=== PATIENT | male | born 1990 | race Caucasian/White ===

== ENCOUNTER 2019-07-12 13:33 | Emergency (ER) | payer BC, SELFPAY ==
[2019-07-12 13:34] VITALS: BP 135/82; PULSE 66; RESP 20; TEMP 36.3; O2SAT 98; BMI 23.7
[2019-07-12 13:53] VITALS: RESP 17
--- NOTE | 2019-07-12 14:00 | PC.NURSE ---
FLUSHED EYES WITH EYE WASH STATION PT LILLIE WELL
--- NOTE | 2019-07-12 14:18 | W.ED.EYEPROB ---
HPI - Eye Problem General: Chief complaint: Eye Problems Stated complaint: chem in eye Time Seen by Provider: 07/12/19 13:41 Review of Systems General: Reports: 10 or more systems reviewed and unremarkable except in HPI and below Eyes: Reports: blurry vision PFSH ED PFSH: Social History Smoking and tobacco status: never smoked Physical Exam Const: COMMON NORMALS: no apparent distress, oriented x3, no limitations and alert GENERAL APPEARANCE: cooperative and comfortable ORIENTATION/CONSCIOUSNESS: Yes awake, Yes oriented to person, Yes oriented to place and Yes oriented to time HENMT: COMMON NORMALS: normocephalic, head/scalp atraumatic, external ears normal, EAC's normal, TM's normal bilaterally and external nose normal HEAD & SCALP: normal to inspection, normocephalic and atraumatic FACE & SINUS: normal facial exam, sinuses nontender and face symmetric NOSE: external nose normal, nares normal and no nasal discharge EXTERNAL EAR: Yes external ears normal EXTERNAL AUDITORY CANAL: EAC's normal TYMPANIC MEMBRANE: TM's normal bilaterally MOUTH: oral and palatal mucosa normal, lip normal and tongue normal THROAT: posterior oropharynx normal, tonsils normal and uvula midline Eye: COMMON NORMALS: PERRL and EOMs intact bilaterally GENERAL EYE: normal appearance of both eyes and normal light reflex EYELID: eyelids normal CONJUNCTIVA: Yes conjunctiva abnormal positive right other (redness) SCLERA: sclerae normal CORNEA: Yes corneas normal and fluorescein used PUPIL: Yes PERRL EOM: Yes EOM abnormal DIRECT OPHTHALMOSCOPY: Yes normal light reflex Neck/C-Spine: COMMON NORMALS: full ROM, no lymphadenopathy, supple, no meningeal signs, no JVD and thyroid normal GENERAL: Yes normal visual inspection THYROID: thyroid normal CERVICAL SPINE: Yes cervical ROM normal and Yes normal cervical lordosis Lymph: LYMPHATIC: no lymphadenopathy noted Chest: COMMONS NORMALS: inspection of chest normal and palpation of chest normal Resp: COMMON NORMALS: normal respiratory effort, no retractions and clear to auscultation bilaterally AUSCULTATION: clear to auscultation bilaterally Cardio: COMMON NORMALS: no JVD, regular rate, regular rhythm, S1 normal heart sound, S2 normal heart sound, no gallops, no clicks, no murmurs, no rub and peripheral pulses 2+ throughout RATE: regular rate RHYTHM: regular rhythm HEART SOUNDS: S1 normal and S2 normal PERIPHERAL PULSES: pulses 2+ throughout GI: COMMON NORMALS: normal to inspection, nondistended, normoactive bowel sounds, soft to palpation, non-tender and no masses PALPATION: Yes soft : COMMON NORMALS: Yes no CVA tenderness BLADDER/KIDNEY EXAM: Yes no CVA tenderness Back/Pelvis: COMMON NORMALS: no CVA tenderness, thoracic and lumbar spine normal to inspection, no thoracic nor lumbar tenderness and thoraco-lumbar ROM normal Extremity: COMMON NORMALS: normal to inspection, full ROM, normal capillary refill, no joint enlargement, no clubbing, cyanosis or edema, no calf tenderness and no pedal edema GENERAL: Yes normal exam except as noted Neuro: COMMON NORMALS: oriented x3, moves all extremities, no focal motor deficits, no sensory deficits noted and gait normal SENSORIUM/ORIENTATION: Yes alert, Yes oriented to person, Yes oriented to place and Yes oriented to time MENINGEAL SIGNS: Yes no meningeal signs Psych: COMMON NORMALS: mental status grossly normal, thought process normal, cooperative, affect normal, speech normal and activity/motor behavior normal SPEECH: Yes normal speech THOUGHT PROCESS: normal thought process Skin: COMMON NORMALS: no rashes or lesions noted, no wounds and skin turgor normal GENERAL SKIN EXAM: no rashes or lesions noted and turgor normal Course ED course: Spoke with pt, he was working and got polyurethane in his right eye. Immediately began to flush with water. Flushed again upon arrival. BRITTANY Swanson was consulted and states to proceed with normal eye trauma protocol. Will do tetracaine and split eye exam at bedside. Vital Signs: Vital signs: Vital Signs Temperature 97.4 F L 07/12/19 13:34 Pulse Rate 66 07/12/19 13:34 Respiratory Rate 17 07/12/19 13:53 Blood Pressure 135/82 07/12/19 13:34 Pulse Oximetry 98 07/12/19 13:34 Discharge Plan Discharge Patient Disposition: Home, Self-Care Clinical Impression: Corneal abrasion Condition: Stable Prescriptions: New Maxitrol 3.5 mg/g-10,000 unit/g-0.1 % ointment 1 applic ophthalmic (eye) TID Qty: 3.5 RF: 0 Tylenol-Codeine #3 300-30 mg tablet 1 tab PO Q8H Qty: 14 RF: 0 Referrals: Jerome Lam MD [Physician] - Discharge Diet: Advance as tolerated Discharge Activity: Resume usual activity Activity Restrictions/Additional Instructions: Follow up with opthamologist next week. Stand Alone Forms: Work/School Release Coding Level of Care Code ED Watch Crystal Molder for Chg Fwd Exam Comprehensive
[2019-07-12] MEDS: tetanus-dipt-pertussis 0.5 mL SDV IM (14:40)
[2019-07-12] MEDS: tetracaine 0.5% Op Soln 4 mL Btl 1 DROP EYE-RIGHT (14:47)
[2019-07-12] MEDS: fluorescein 1 mg Strip EYE-RIGHT (14:48)
[2019-07-12] MEDS: acetaminophen-codeine 300-30mg Tablet 1 TAB PO (14:59)
[2019-07-12 15:40] VITALS: BP 126/81; PULSE 81; RESP 18; TEMP 36.3; O2SAT 97
== END 2019-07-12 15:05 | disposition home or self-care (01) ==
PROVIDERS: Emergency Provider Nurse Practitioner Family
DX: S05.01XA Injury of conjunctiva and corneal abrasion without foreign body, right eye, initial encounter (principal); Z77.098 Contact with and (suspected) exposure to other hazardous, chiefly nonmedicinal, chemicals; Y99.0 Civilian activity done for income or pay; X58.XXXA Exposure to other specified factors, initial encounter; Z23 Encounter for immunization
CPT/HCPCS: 12345; 90471; 90715; 99282; 99283